=== PATIENT | male | born 1965 | race Caucasian/White ===

== ENCOUNTER 2017-12-04 10:11 | Day surgery (SDC) | payer OTHER ==
[~2017-12-04] VITALS: Ht 175.3 cm; Wt 97.5 kg
[~2017-12-04 10:11] MED LIST: BENTYL20 MG PO; GABA300 PO; HYDACE10B PO; HYDR1TAB94 PO; LEVFLO500 PO; Lisinopril2.5 MG PO; METO50ER PO; NEBI5 PO; NITR100 PO; Pyridium100 MG PO
== END 2017-12-04 22:48 | disposition home or self-care (01) ==
LOC: ORSCMMR 10:11
PROVIDERS: Urology
PROC: 0TF3XZZ Fragmentation in Right Kidney Pelvis, External Approach (ICD-10-PCS; principal; 2017-12-04 13:00)
DX: N20.0 Calculus of kidney (principal); I10 Essential (primary) hypertension; G47.33 Obstructive sleep apnea (adult) (pediatric); Z79.899 Other long term (current) drug therapy
CPT/HCPCS: J0744; J2250; J2405; J3010; J7120

== ENCOUNTER 2019-07-14 22:10 | Emergency (ER) | payer OTHER ==
[~2019-07-14] VITALS: Ht 175.3 cm; Wt 86.6 kg
[2019-07-14 22:42] LABS: BASOPHILS ABSOLUTE AUTO 0.03 K/mm3 (0.00-0.23); BASOPHILS PERCENT AUTO 0 % (0-2); EOSINOPHILS ABSOLUTE AUTO 0.29 K/mm3 (0.00-0.68); EOSINOPHILS PERCENT AUTO 3 % (0-6); Hematocrit 42.5 % (37.0-53.0); Hemoglobin 14.4 g/dL (13.5-17.5); IMMATURE GRAN ABSOLUTE AUTO 0.03 K/mm3 (0.00-0.10); IMMATURE GRAN PERCENT AUTO 0 % (0-1); LYMPHOCYTES ABSOLUTE AUTO 2.79 K/mm3 (0.84-5.20); LYMPHOCYTES PERCENT AUTO 28 % (21-46); MONOCYTES PERCENT AUTO 7 % (4-13); Mean Corpuscular HGB 32.6 pg (26.0-34.0); Mean Corpuscular HGB Conc 33.9 g/dL (31.5-36.5); Mean Corpuscular Volume 96 fL (80-100); Mean Platelet Volume 9.5 fL (9.1-12.4); NEUTROPHILS ABSOLUTE AUTO 6.16 K/mm3 (1.96-9.15); NEUTROPHILS PERCENT AUTO 62 % (41-73); Platelet Count 247 K/mm3 (150-400); RDW Coefficient Variation 11.9 % (11.7-14.2); RDW Standard Deviation 41.7 fL (35.1-46.3); Red Blood Cell Count 4.42 M/mm3 (4.30-5.90)
[2019-07-14] MEDS ORDERED: TRAZ50 PO (22:57)
[2019-07-14] MEDS ORDERED: GABA300 PO (22:57)
[2019-07-14] MEDS ORDERED: TAMS.4ER PO (22:57)
[2019-07-14 23:03] LABS: Alanine Aminotransfer (ALT/SGP 36 U/L (12-78); Albumin, Blood 4.1 g/dL (3.4-5.0); Albumin/Globulin Ratio 1.2 (0.8-1.8); Alk Phos 63 U/L (50-136); Anion Gap 8 mmol/L (6-16); Aspartate Aminotrans (AST/SGOT 24 U/L (12-37); Bilirubin, Total 0.3 mg/dL (0.1-1.0); Blood Urea Nitrogen 28 mg/dL (8-24); Bun/Creatinine Ratio 24.6 (12.0-20.0); CO2, Blood 25 mmol/L (21-32); Calcium, Blood 9.3 mg/dL (8.5-10.1); Chloride, Blood 106 mmol/L (98-108); Creatinine, Blood 1.14 mg/dL (0.60-1.20); Globulin, Blood 3.5 g/dL (2.2-4.0); Glomerular Filtration Rate >60 (60-); Glucose, Blood 107 mg/dL (70-99); Potassium, Blood 3.7 mmol/L (3.5-5.5); Sodium, Blood 139 mmol/L (136-145); Total Protein, Blood 7.6 g/dL (6.4-8.2)
[2019-07-15 01:44] LABS: Source, Urine Clean Catch
[2019-07-15 01:46] LABS: Bilirubin, Urine Neg (Neg); Blood, Urine 4+ (Neg); Glucose Qualitative, Urine Neg (Neg); Ketones, Urine Neg (Neg); Leukocyte Esterase, Urine 1+ (Neg); Nitrite, Urine Pos (Neg); Protein, Urine Neg (Neg); Urobilinogen, Urine NORM (Normal)
[2019-07-15 01:50] LABS: Appearance, Urine Hazy (Clear); Color, Urine Yellow (P-Yellow)
[2019-07-15 01:51] LABS: Bacteria Many /hpf; Spermatozoa Few /hpf; Squamous Epithelial Cells Not Seen /hpf (Few); White Blood Cells, Urine 25-50 /hpf (0-5)
[2019-07-15 01:52] LABS: Mucus Mod ({null, 0-Heavy})
== END 2019-07-15 02:27 | disposition home or self-care (01) ==
LOC: ER 22:10
PROVIDERS: Emergency Medicine
DX: N13.2 Hydronephrosis with renal and ureteral calculous obstruction (principal); Z88.2 Allergy status to sulfonamides; Z88.1 Allergy status to other antibiotic agents; Z79.899 Other long term (current) drug therapy; Z87.442 Personal history of urinary calculi
CPT/HCPCS: 36415; 74176; 80053; 81001; 85025; 87086; 96361; 96365; 96375; 99284-25; A9270; A9270-GY; J0696; J1170; J1885; J2405; J7030

== ENCOUNTER 2025-07-25 13:15 | Emergency (ER) | payer OTHER ==
[~2025-07-25] VITALS: Ht 175.3 cm; Wt 97.5 kg
[~2025-07-25 13:15] MED LIST changes: +TAMS.4ER PO; +TRAZ50 PO
[2025-07-25] MEDS ORDERED: NS 1,000 ML IV SCH (13:45)
[2025-07-25] MEDS ORDERED: HYDROmorphone HCl/Pf 1MG SYR IV PRN (13:50)
[2025-07-25 14:15] LABS: BASOPHILS ABSOLUTE AUTO 0.04 K/mm3 (0.00-0.23); BASOPHILS PERCENT AUTO 0 % (0-2); EOSINOPHILS ABSOLUTE AUTO 0.17 K/mm3 (0.00-0.68); EOSINOPHILS PERCENT AUTO 1 % (0-6); Hematocrit 41.9 % (37.0-53.0); Hemoglobin 14.5 g/dL (13.5-17.5); IMMATURE GRAN ABSOLUTE AUTO 0.06 K/mm3 (0.00-0.10); IMMATURE GRAN PERCENT AUTO 0 % (0-1); LYMPHOCYTES ABSOLUTE AUTO 1.56 K/mm3 (0.84-5.20); LYMPHOCYTES PERCENT AUTO 11 % (21-46); MONOCYTES ABSOLUTE AUTO 0.65 K/mm3 (0.16-1.47); MONOCYTES PERCENT AUTO 5 % (4-13); Mean Corpuscular HGB Conc 34.6 g/dL (31.5-36.5); Mean Corpuscular Volume 95 fL (80-100); NEUTROPHILS ABSOLUTE AUTO 11.53 K/mm3 (1.96-9.15); NEUTROPHILS PERCENT AUTO 82 % (41-73); NRBC ABSOLUTE 0.00 K/mm3 (0.00-0.02); NRBC Auto 0.0 /100 WBC (0.0-0.2); Platelet Count 238 K/mm3 (150-400); RDW Coefficient Variation 12.0 % (11.7-14.2); RDW Standard Deviation 42.0 fL (35.1-46.3)
[2025-07-25 14:32] LABS: Alanine Aminotransfer (ALT/SGP 48.0 U/L (12-78); Albumin, Blood 4.1 g/dL (3.4-5.0); Albumin/Globulin Ratio 1.3 (0.8-1.8); Anion Gap 7.0 mmol/L (3-11); Aspartate Aminotrans (AST/SGOT 29.0 U/L (12-37); Bilirubin, Total 0.5 mg/dL (0.1-1.0); Blood Urea Nitrogen 24.0 mg/dL (8-24); CO2, Blood 26.0 mmol/L (21-32); Calcium, Blood 8.7 mg/dL (8.5-10.1); Chloride, Blood 109.0 mmol/L (98-108); Creatinine, Blood 0.82 mg/dL (0.60-1.20); Globulin, Blood 3.1 g/dL (2.2-4.0); Glucose, Blood 104.0 mg/dL (70-99); Potassium, Blood 4.2 mmol/L (3.5-5.5); Sodium, Blood 138.0 mmol/L (136-145); Total Protein, Blood 7.2 g/dL (6.4-8.2)
[2025-07-25 14:51] LABS: Source, Urine Clean Catch
[2025-07-25 14:56] LABS: Bilirubin, Urine Neg (Neg); Color, Urine Yellow (P-Yellow); Glucose Qualitative, Urine Neg (Neg); Ketones, Urine Neg (Neg); Leukocyte Esterase, Urine Neg (Neg); Protein, Urine 2+ (Neg); Specific Gravity, Urine 1.010 (1.003-1.022); Urobilinogen, Urine NORM (Normal)
[2025-07-25 15:03] LABS: White Blood Cells, Urine 0-2 /hpf (0-5)
[2025-07-25] MEDS ORDERED: HYDROCODONE-AC1 EA19 PO (15:34)
[2025-07-25] MEDS ORDERED: Bisoprolol Fuma10 MG PO (15:34)
[2025-07-25] MEDS ORDERED: Klor-Con M1515 MEQ PO (15:35)
[2025-07-25] MEDS ORDERED: ROSUVASTATIN CA20 MG PO (15:35)
[2025-07-25] MEDS ORDERED: TIZANIDINE HCL213 PO (15:35)
[2025-07-25] MEDS ORDERED: Norco 10-325 T1 EACH PO (15:56)
[2025-07-25 16:00] VITALS: BP 145/99
== END 2025-07-25 16:19 | disposition home or self-care (01) ==
LOC: ER 13:15
PROVIDERS: Student in an Organized Health Care Education/Training Program
DX: N20.0 Calculus of kidney (principal); I10 Essential (primary) hypertension; G47.33 Obstructive sleep apnea (adult) (pediatric); J45.909 Unspecified asthma, uncomplicated; Z87.442 Personal history of urinary calculi; Z88.2 Allergy status to sulfonamides; Z88.1 Allergy status to other antibiotic agents; Z79.899 Other long term (current) drug therapy
CPT/HCPCS: 74176; 80053; 81001; 85025; J7030

== ENCOUNTER 2025-08-17 07:29 | Day surgery (SDC) | payer OTHER ==
[~2025-08-17] VITALS: Ht 175.3 cm; Wt 96.4 kg
[~2025-08-17 07:29] MED LIST changes: +ALBU90OI INH; +BREZTRI AEROS10.7 GM INH; +Bisoprolol Fuma10 MG PO; +CELE100 PO; +HYDCHL25 PO; +HYDROCODONE-AC1 EA19 PO; +Klor-Con M1515 MEQ PO; +LOSA25 PO; +Lidocaine 2% Jelly Uro-Jet ONE; +Norco 10-325 T1 EACH PO; +PREG75 PO; +ROSUVASTATIN CA20 MG PO; +TIZANIDINE HCL213 PO
[2025-08-17] MEDS ORDERED: CeFAZolin Sodium 2,000 MG VIAL ONE (07:41)
[2025-08-17] MEDS ORDERED: TAMSULOSIN HCL0.4 M1 PO (07:55)
[2025-08-17] MEDS ORDERED: FentaNYL Citrate 50 MCG/ML 2 ML Injection ONE (08:00)
[2025-08-17] MEDS ORDERED: Midazolam HCl 1MG / ML 2ML Vial ONE (08:00)
[2025-08-17] MEDS ORDERED: Ondansetron HCl 2 MG / ML 2ML Vial ONE (08:00)
[2025-08-17] MEDS ORDERED: Dexamethasone Sod Phos 10 MG/ML 1ML VIAL ONE (08:00)
[2025-08-17] MEDS ORDERED: Phenylephrine HCl 100 MCG/ML-NS 10MLSYR (1MG/10ML) ONE (08:57)
[2025-08-17] MEDS ORDERED: ePHEDrine Sulfate 50 MG/ML 1ML Injection ONE (09:55)
--- NOTE | 2025-08-17 10:42 | NUR ---
08/17/25 1042 Mervat Hunt ISOVUE-300 MIXED 1:1 WITH NS, A TOTAL OF 10ML USED.
--- NOTE | 2025-08-17 10:46 | NUR ---
08/17/25 1046 Eloise Acosta REPORT RECEIVED FROM JESS AND RN. PT ASLEEP UPON ARRIVAL. PLACED ON 4L BNC. VSS. STRING VISIBLE FROM URETHRA, NO DRAINAGE NOTED AT THIS TIME.
--- NOTE | 2025-08-17 11:27 | NUR ---
08/17/25 1127 Eloise Acosta pt sitting on edge of bed attempting to urinate in urinal
[2025-08-17] MEDS ORDERED: Ketorolac Tromethamine 30mg Vial ONE (11:28)
[2025-08-17] MEDS ORDERED: HYDROcodone 5-APAP 325 TAB ONE (11:51)
[2025-08-17 12:04] VITALS: BP 126/88
== END 2025-08-17 12:15 | disposition home or self-care (01) ==
LOC: ORSCSDS 07:29 → ORD 09:00 → ORSCSDS 09:00
PROVIDERS: Urology
PROC: 0T768DZ Dilation of Right Ureter with Intraluminal Device, Via Natural or Artificial Opening Endoscopic (ICD-10-PCS; principal; 2025-08-17 09:00)
PROC: 0TF38ZZ Fragmentation in Right Kidney Pelvis, Via Natural or Artificial Opening Endoscopic (ICD-10-PCS; principal; 2025-08-17 09:00)
DX: N20.0 Calculus of kidney (principal); I10 Essential (primary) hypertension; E78.5 Hyperlipidemia, unspecified; G47.33 Obstructive sleep apnea (adult) (pediatric); J45.909 Unspecified asthma, uncomplicated; E66.9 Obesity, unspecified; Z79.899 Other long term (current) drug therapy
CPT/HCPCS: A9270; C1758; C1769; C2617; J0690; J1100; J1885; J2250; J2371; J2405; J2704; J3010; J7120